=== PATIENT | male | born 1965 | race Caucasian/White ===

== ENCOUNTER 2017-06-07 17:49 | Emergency (ER) | payer OTHER ==
[2017-06-07 18:05] VITALS: BP 162/107; PULSE 76; RESP 16; TEMP 98.1; O2SAT 96
--- NOTE | 2017-06-07 18:07 | EDPHY ---
H & P Time Seen by Provider: 06/07/17 18:00 HPI/ROS: CHIEF COMPLAINT: Possible blood borne pathogen exposure HISTORY OF PRESENT ILLNESS: 51-year-old male otherwise healthy with up-to-date hepatitis a and B immunizations, no history of HIV, was possibly exposed to blood borne pathogen from individual that was placed into custody, possibly got blood on his clothing. No laceration. No abrasion. No scratch. No exposure to mucous membrane services. PHYSICAL EXAM (Prior to examination, patient consented to physical exam, hands were washed and my usual and customary physical exam procedures followed) 1) GENERAL: Well-developed, well-nourished, alert and oriented. Appears to be in no acute distress. 2) HEAD: Normocephalic 3) HEENT: sclera anicteric 4) LUNGS: [Breathing comfortably. MDM/Departure - [facility] ED Course/Re-evaluation: Post exposure protocol has been followed by the ER staff, source patient blood work obtained. Patient has had no break in the integrity of the skin, no exposure to mucous membrane services. - Depart Disposition: Home, Routine, Self-Care Clinical Impression: Exposure to blood-borne pathogen Condition: Good Instructions: Body Substance Exposure (ED) Stand Alone Forms: Work Comp Follow Up Referrals: Follow-up, with your work comp provider in 1 day [Other] - As per Instructions
== END 2017-06-07 18:10 | disposition home or self-care (01) ==
DX: Z77.21 Contact with and (suspected) exposure to potentially hazardous body fluids (principal)